=== PATIENT | male | born 1965 | race Caucasian/White ===

== ENCOUNTER 2024-09-16 22:19 | Emergency (ER) | payer OTHER, SELFPAY ==
[2024-09-16 22:21] VITALS: BP 126/85; PULSE 71; RESP 18; TEMP 36.2; O2SAT 98; BMI 26.5
--- NOTE | 2024-09-16 23:54 | EX.ED.DYSGE1 ---
HPI History of Present Illness Chief Complaint: Foreign Body Narrative Narrative: Patient is a 59-year-old male who presents to the emerged part with a chief complaint of piece of his hearing aid breaking off in his right ear and unable to get out on his own therefore he came here for the valuation management. Patient has no complaints at this point time. [facility] Allergy/AdvReac Type Severity Reaction Status Date / Time No Known Allergies Allergy Verified 09/16/24 22:21 Social History Smoking Status: Never smoker ROS ROS ED ROS Narrative Constitutional: Denies any headaches, lightness, dizziness Eyes, ears, nose, throat: Complains of retained foreign body in right ear as noted above Neurological: Denies numbness, weakness, tingling EXAM Physical Exam Narrative Exam Narrative: General: Patient lying in bed rest comfortably did not appear to be acute distress Head: Atraumatic, normocephalic Eyes, ears, nose, throat: PERRL bilateral, EOMI biotic no conjunctival injection noted, patient has evidence of piece of his hearing aid in his right ear canal Const Vital Signs: 09/16/24 22:21 09/16/24 22:31 Temperature 97.2 F L Temperature Source Temporal Pulse Rate 71 Respiratory Rate 18 Respiratory Effort Normal Respiratory Pattern Normal Blood Pressure 126/85 H Blood Pressure Mean 98 Pulse Ox 98 MDM MDM MDM Narrative Medical decision making narrative: Patient 59-year-old male who presented to the emerged part with a chief complaint of retained foreign body from his hearing aid in his right ear. On the differential diagnose includes but not limited to retained foreign body, otitis externa. Once workup is obtained reviewed he will be reevaluated. I was able to successfully remove the piece of the hearing aid that broke off. Repeat ENT exam showed no evidence of abrasion, TM visualized is normal in appearance no evidence of otitis media no evidence of perforated tympanic membrane. Patient advised to follow-up with his primary care physician and return with worsening symptoms or concerns. He is agreeable to plan all question concerns answered discharged home in stable condition. Discharge Plan Triage Chief Complaint: Foreign Body ED Provider: Kalia Manuel Dx/Rx/DC Orders Clinical Impression: Ear foreign body Primary Care Provider: Cedric Rao Referrals: Cedric Rao MD [Primary Care Provider] - Activity Restrictions/Additional Instructions: Follow-up with your primary care physician outpatient setting. I was able to remove the foreign body here in the emergency department. Print Language: Citizen Of [place] Disposition Disposition: Home, Self Care
[2024-09-16 23:59] VITALS: BP 126/85; PULSE 71; RESP 18; TEMP 36.2; O2SAT 98
== END 2024-09-17 00:05 | disposition home or self-care (01) ==
PROVIDERS: Emergency Provider Emergency Medicine; PCP Family Medicine; Referring Provider Emergency Medicine; Visit Provider Emergency Medicine
DX: T16.1XXA Foreign body in right ear, initial encounter (principal); W44.G1XA Audio device entering into or through a natural orifice, initial encounter

== ENCOUNTER 2025-08-25 11:45 | Emergency (ER) | payer OTHER, SELFPAY ==
[2025-08-25 11:46] VITALS: BP 153/90; PULSE 91; RESP 18; TEMP 36.6; O2SAT 98; BMI 24.6
--- NOTE | 2025-08-25 12:06 | EDS_ITS ---
HPI History of Present Illness Chief Complaint: Laceration Narrative Narrative: Patient is a 60-year-old male presenting to the emergency department for a hand laceration. Patient states that about an hour ago he was grinding cow feed when he injured his left hand. He is unsure when his last tetanus vaccine was. He denies any other injuries. He is right hand dominant. PFSH PFSH Allergy/AdvReac Type Severity Reaction Status Date / Time No Known Allergies Allergy Verified 08/25/25 11:48 Social History Smoking Status: Never smoker ROS ROS ED ROS Narrative see HPI EXAM Physical Exam Narrative Exam Narrative: Vital signs: Reviewed General: Alert and orientedx3. No acute distress. Well appearing, nontoxic. HEENT: Head is normocephalic and atraumatic, sinuses nontender, pupils equal round and reactive. Nares are patent. Oropharynx and throat exams normal. Neck: Supple without lymphadenopathy nontender Cardiovascular: Regular rate and rhythm, no murmurs. No rubs or gallops. Normal S1 and S2 Respiratory: Clear to auscultation bilaterally. No wheezes, rales, rhonchi Abdominal: Soft and nontender. Normal bowel sounds. No guarding or rebound. Nonsurgical abdomen Extremities: Left radial pulse intact. Sensation and motor intact in radial median and ulnar distributions. There is a 3 cm laceration to the left volar ulnar side of the palm proximally. There is active oozing, no arterial bleeding. No obvious foreign body seen. There is a skin abrasion to the dorsal proximal aspect of the left ulnar side of the hand. No active bleeding. The rest of the physical exam is unremarkable Const Vital Signs: 08/25/25 11:46 08/25/25 13:35 Temperature 98 F 98.1 F Temperature Source Oral Pulse Rate 91 73 Respiratory Rate 18 18 Blood Pressure 153/90 H 132/82 H Blood Pressure Mean 111 98 Pulse Ox 98 98 Oxygen Delivery Method Room Air MDM MDM MDM Narrative Medical decision making narrative: Patient is a 60-year-old male presenting to the emergency department for a left hand laceration. Patient was seen and examined. Vitals are stable. Patient resting in bed comfortably no acute distress. Tetanus vaccine was updated. Wound was copiously irrigated under 10 minutes of running faucet water. X-ray imaging ordered to evaluate for any radiopaque foreign body or fracture. X-ray reviewed by myself and there is no fractures or radiopaque foreign body noted. Radiology read in agreement. Patient was anesthetized using 2% lidocaine with epi. Five 4.0 Ethilon simple interrupted sutures were placed. Patient tolerated well. Patient and are given wound care instructions. Instructed to have the sutures removed in about 7 days. Patient discharged from the Emergency Department. I do not feel that the patient's evaluation reveals any acute reason for admission at this time. I ins tructed them to either follow-up with their primary care physician or promptly return to the Emergency Department for reevaluation should symptoms worsen or new symptoms develop. I explained what symptoms would indicate the need to return to the emergency department. Shared decision making was used. The patient voiced understanding of the treatment plan and is agreeable with it. Clinical impression Hand laceration History & Record Review Discussion w/independent historian: Patient and Significant other Radiography X-Ray: Read by ED Physician and No Fracture Diagnostic Testing: Clinical Impression(s) from Imaging Studies Hand X-Ray 08/25/25 12:20 IMPRESSION: NO ACUTE FRACTURE OR DISLOCATION. If acute hand or wrist trauma is suspected and initial radiographs are negative or equivocal repeat radiographs in 10-14 days MRI without IV contrast or CT without IV contrast is usually appropriate as the next imaging study. (ACR Appropriateness Criteria: Acute Hand and Wrist Trauma 2018) No retained radiopaque foreign body. Reading Location: [facility] Discharge Plan Triage Chief Complaint: Laceration ED Provider: Tatianna Hartmann Dx/Rx/DC Orders Clinical Impression: Hand laceration Instructions: ED Laceration, All Closures Primary Care Provider: Cedric Rao Referrals: Cedric Rao MD [Primary Care Provider, Family Practice] - 5-7 Days Activity Restrictions/Additional Instructions: Continue to have the sutures removed in about 7 days. Watch for signs of infection are discussed including drainage, warmth, redness or swelling. Try to keep the wound is clean and dry as you can. Keep it covered with gauze or any other Band-Aid/dressing. Your evaluation in the Emergency Department did not reveal any acute reason for admission. However, I want to emphasize that you may be early in the course of a disease process or illness even if it is not present. For this reason you should follow-up within 24 hours for reevaluation with either your primary care physician or if necessary back here in the Emergency Department. You should return to the Emergency Department immediately if your symptoms worsen or new symptoms develop. Print Language: [place]ese Disposition Disposition: Home, Self Care Discharge Date/Time: 08/25/25 13:47
--- NOTE | 2025-08-25 12:20 | RAD_ITS ---
PROCEDURE: HAND MIN 3 VIEWS 08/25/2025 REASON FOR EXAM: LAC TO HAND TECHNIQUE: Procedure Code: [id number] Modality: DX Procedure: HAND MIN 3 VIEWS Laterality: Left COMPARISON: None FINDINGS: Bones: No acute fracture. Joints: No dislocation. Soft tissues: No retained radiopaque foreign body. Other: RAD/Hand Min 3 Views IMPRESSION: NO ACUTE FRACTURE OR DISLOCATION. If acute hand or wrist trauma is suspected an d initial radiographs are negative or equivocal repeat radiographs in 10-14 days MRI without IV contrast or CT without IV contr ast is usually appropriate as the next imaging study. (ACR Appropriateness Criteria: Acute Hand and Wrist Trauma 2018) No retained radiopaque foreign body. Reading Location: [facility]
--- OUTSIDE RECORDS SUMMARY | 2025-08-25 12:54 | XMS RPT_ITS | CCD ---
Author Organization [facility] Informat ion Partnership [facility] Care Team Providers Care Device Repair Technician Name Role Phone Lori Sheppard MD Primary Care Provider LORI SHEPPARD Attending Unavailable LORI SHEPPARD Primary Care Unavailable LORI SHEPPARD Attending Unavailable LORI SHEPPARD Primary Care Unavailable LORI SHEPPARD Primary Care Unavailable Cedric Rao Primary Care Unavailable Kalia Manuel Referring Unavailable Kalia Manuel Attending Unavailable Problems Active Problems Problem Classification Problem Date Documented Da te Episodic/Chronic Other ear and sense organ disorders (1 source) Hearing loss; Translations: [Unspecified hearing loss, unspecified ear] 07-26-2023 Chronic Other ear and sense organ disorders (2 sources) Unspecified hearing loss, unspecified ear; Translations: [Unspecified hearing loss, unspecified ear] Onset: 07-26-2023 Chronic Other injuries and conditions due to external causes (1 source) Foreign body in right ear, initial encounter; Translations: [Foreign body in right ear, initial encounter] Onset: 11-27-2024 Episodic Other screening for suspected conditions (not mental disorders or infectious disease) (5 sources) Patient encounter status; Translations: [Encounter for screening for diabetes mellitus] Onset: 11-24-2023 11-24-2023 Episodic Past or Other Problems Problem Classification Problem Date Documented Date Episodic/Chronic Immunizations and screening for infectious disease (3 sources) Requires tetanus and diphtheria vaccination; Translations: [Encounter for immunization] Onset: 07-26-2023 07-26-2023 Episodic Otitis media and related conditions (3 sources) Finding of fluid behind tympanic membrane; Translations: [Unspecified nonsuppurative otitis media, unspecified ear] Onset: 07-26-2023 07-26-2023 Episodic Unclassified (1 source) Onset: 11-24-2023 11-24-2023 Results Test Name Value Interpretation Reference Range Facil ity Emergency Department Summary on 09-16-2024 Emergency Department Summary [facility] Medical Records Department [address] [place] [address] Emergency Department Summary 09/16/24 MR#: [id number] Acct: [id number] Name: LAURI DU Rep #: [id number] : 1965 59 From: Kalia Manuel DO PCP: Dr. Cedric Rao MD Status:REG ER Location: ED HPI History of Present Illness Chief Complaint: Foreign Body Narrative Narrative: Patient is a 59-year-old male who presents to the emerged part with a chief complaint of piece of his hearing aid breaking off in his right ear and unable to get out on his own therefore he came here for the valuation management. Patient has no complaints at this point time. PFSH PFSH Allergy/AdvReac Type Severity Reaction Status Date / Time No Known Allergies Allergy Verified 09/16/24 22:21 Social History Smoking Status: Never smoker ROS ROS ED ROS Narrative Constitutional: Denies any headaches, lightness, dizziness Eyes, ears, nose, throat: Complains of retained foreign body in right ear as noted above Neurological: Denies numbness, weakness, tingling EXAM Physical Exam Narrative Exam Narrative: General: Patient lying in bed rest comfortably did not appear to be acute distress Head: Atraumatic, normocephalic Eyes, ears, nose, throat: PERRL bilateral, EOMI biotic no conjunctival injection noted, patient has evidence of piece of his hearing aid in his right ear canal Const Vital Signs: 09/16/24 22:21 09/16/24 22:31 Temperature 97.2 F L Temperature Source Temporal Pulse Rate 71 Respiratory Rate 18 Respiratory Effort Normal Respiratory Pattern Normal Blood Pressure 126/85 H Blood Pressure Mean 98 Pulse Ox 98 MDM MDM MDM Narrative Medical decision making narrative: Patient 59-year-old male who presented to the emerged part with a chief complaint of retained foreign body from his hearing aid in his right ear. On the differential diagnose includes but not limited to retained foreign body, otitis externa. Once workup is obtained reviewed he will be reevaluated. I was able to successfully remove the piece of the hearing aid that broke off. Repeat ENT exam showed no evidence of abrasion, TM visualized is normal in appearance no evidence of otitis media no evidence of perforated tympanic membrane. Patient advised to follow-up with his primary care physician and return with worsening symptoms or concerns. He is agreeable to plan all question concerns answered discharged home in stable condition. Discharge Plan Triage Chief Complaint: Foreign Body ED Provider: Kalia Manuel Dx/Rx/DC Orders Clinical Impression: Ear foreign body Primary Care Provider: Cedric Rao Referrals: Cedric Rao MD [Primary Care Provider] - Activity Restrictions/Addition al Instructions: Follow-up with your primary care physician outpatient setting. I was able to remove the foreign body here in the emergency department. Print Language: Malagasy Disposition Disposition: Home, Self Care What to do if you have Problems For any increased pain, shortness of breath, bleeding, nausea or vomiting, chest pain, or any unexpected problems, contact your Primary Care Provider. Call [facility] ([phone]) or report to the closest Emergency Room. Call 911 if necessary. 09/16/24 5692 Cosigner Signature (if applicable): CC: Dr. Cedric Rao MD Signed Normal [facility] Basic metabolic 2000 panelon 11-24-2023 Anion gap [Moles/Vol] 9 mmol/L Low 10-20 [facility] Comment on above: Performed By: #### 2 4321-2 #### CINDY HOOPER ([id number]) [facility] ([facility]) [facility] [place] [address] Calcium [Mass/Vol] 9.4 mg/dL Normal 8.6-10.3 [facility] Comment on above: Performed By: #### 2 4321-2 #### CINDY HOOPER ([id number]) [facility] ([facility]) [facility] [place] [address] Chloride [Moles/Vol] 102 mmol/L Normal 98-107 [facility] Comment on above: Performed By: #### 2 4321-2 #### CINDY HOOPER ([id number]) [facility] ([facility]) [facility] [place] [address] CO2 [Moles/Vol] 32 mmol/L Normal 21-32 [facility] Comment on above: Performed By: #### 2 4321-2 #### CINDY HOOPER ([id number]) [facility] ([facility]) [address] [place] [address] Creatinine [Mass/Vol] 1.04 mg/dL Normal 0.50-1.30 [facility] Comment on above: Performed By: #### 2 4321-2 #### CINDY HOOPER ([id number]) [facility] ([facility]) [address] [place] [address] Glomerular filtration rate/1.73 sq M.predicted 83 mL/min/1.73m*2 Normal >60 [facility] Comment on above: Result Comment: Calc ulations of estimated GFR are performed using the 2020 CKD-EPI Study Refit equation without the race variable for the IDMS-Traceable creatinine methods. https://jasn.asnjournals.org/content//ASN.925768095 8 Performed By: #### 2 4321-2 #### CINDY HOOPER ([id number]) [facility] ([facility]) [address] [place] [address] Glucose [Mass/Vol] 87 mg/dL Normal 74-99 [facility] Comment on above: Performed By: #### 2 4321-2 #### CINDY HOOPER ([id number]) [facility] ([facility]) [address] [place] [address] Potassium [Moles/Vol] 4.7 mmol/L Normal 3.5-5.3 [facility] Comment on above: Performed By: #### 2 4321-2 #### CINDY HOOPER ([id number]) [facility] ([facility]) [address] [place] [address] Sodium [Moles/Vol] 138 mmol/L Normal 136-145 [facility] Comment on above: Performed By: #### 2 4321-2 #### CINDY HOOPER ([id number]) [facility] ([facility]) [address] [place] [address] Urea nitrogen [Mass/Vol] 15 mg/dL Normal 6-23 [facility] Comment on above: Performed By: #### 2 4321-2 #### CINDY HOOPER ([id number]) [facility] ([facility]) [address] [place] [address] HbA1c (Bld) [Mass fraction]o n 11-24-2023 Average glucose Estimated from glycated hemoglobin (Bld) [Mass/Vol] 114 mg/dL Normal Not Established [facility] Comment on above: Order Comment: Diagn osis of Diabetes-Adults Non-Diabetic: < or = 5.6% Increased risk for developing diabetes: 5.7-6.4% Diagnostic of diabetes: > or = 6.5% Monitoring of Diabetes Age (y)....................... Therapeutic Goal (%) Adults: >18.........................<7.0 Pediatrics: 13-18...................<7.5 Pediatrics: 7-12....................<8.0 Pediatrics: 0-6..................... 7.5-8.5 [place] [employer]. Diabetes Care 33(S1), Sep 2009 Performed By: #### 4 548-4 #### CINDY HOOPER ([id number]) [facility] ([facility]) [address] [place] [address] Hemoglobin A1c/Hemoglobin.to jung 11-24-2023 HbA1c (Bld) [Mass fraction] 5.6 % Normal see below [facility] Comment on above: Order Comment: Diagn osis of Diabetes-Adults Non-Diabetic: < or = 5.6% Increased risk for developing diabetes: 5.7-6.4% Diagnostic of diabetes: > or = 6.5% Monitoring of Diabetes Age (y)....................... Therapeutic Goal (%) Adults: >18.........................<7.0 Pediatrics: 13-18...................<7.5 Pediatrics: 7-12....................<8.0 Pediatrics: 0-6..................... 7.5-8.5 [place] [employer]. Diabetes Care 33(S1), Sep 2009 Performed By: #### 4 548-4 #### WHITE SANDIE ([id number]) [facility] ([facility]) [facility] [place] [address] CT Coronary Artery Calcium S core - SHILPAon 06-07-2019 Calcium [Mass/Vol] Exam Date/Time: 06/07/2019 08:40 EDT Reason for Exam: SCREENING ISCHEMIC HEART DISEASE FM HX CAD FATIGUE HYPERSOMNOLENCE;Scree claudia Report STUDY: CT Coronary Artery Calcium Score - SHILPA; 06/07/2019 8:40 am INDICATION: Screening. COMPARISON: None. ACCESSION NUMBER(S): [id number] ORDERING CLINICIAN: Kirk Brian TECHNIQUE: Using prospective ECG gating, CT scan of the coronary arteries was performed without intravenous contrast. Coronary calcium scoring was performed according to the method of Agatston. FINDINGS: The score and distribution of calcium in the coronary arteries is as follows: LM 0, LAD 0, LCx 43,19 mm2 RCA 0, Total 43 The visualized mid/lower ascending thoracic aorta measures 3.4 cm in diameter. The visualized descending thoracic aorta is within normal limits for course and caliber. The heart is within normal limits for size. No pericardial effusion is present. No gross mediastinal lymphadenopathy is identified. There is no focal infiltrate, pleural effusion or pneumothorax identified. No discrete pulmonary nodules or masses are seen within the visualized lungs. IMPRESSION: 1. Coronary artery calcium score of 43, which places the patient in the low risk category, as below. Coronary artery calcium scoring may be helpful in predicting the risk for future coronary heart disease events. According to the [place] [employer] Clinical Expert Consensus Task Force, such testing provides important prognostic information in patients with more than one coronary heart disease risk factor. The coronary artery calcium score correlates with the annual risk of a non-fatal myocardial infarction or coronary heart disease . Exam Date/Time: 06/07/2019 08:40 EDT Report Coronary artery score Annual Risk 0-99 0.4% 100-399 1.3% >400 2.4% These three breakpoints correspond to lower, intermediate and high risk states for future coronary events. Such information should be used, along with appropriate clinical judgment, to make decisions regarding the intensity of risk factor management strategies to treat blood lipids and to modify other non-lipid coronary risk factors. Reference: Jaime P et al. Circulation. 2007; 115:402-426 FINAL REPORT Dictated: 06/07/2019 11:44 am Paul Arauz MD Signed (Electronic Signature): 06/07/2019 11:44 am Signed by: Paul Arauz MD Technologist: MLL Normal [facility] Testost Totalon 05-30-2019 Testoster Tot 599 ng/dL Normal 264-916 [facility] Comment on above: Result Comment: Adul t male reference interval is based on a population of healthy nonobese males (BMI <30) between 19 and 39 years old. Denise, et.al. JCEM 2017,102;6986-2841. PMID: 98597098. Performed At: [facility] [address] [id number] Atilio Flores PhD Ph:[phone] Performed By: #### 2 [id number] #### FREEDOM Send Outs Subsection [facility] [place] [address] Auto Diffon 02-22-2019 Basophils (Bld) [#/Vol] 0.0 E3/mcL Normal 0.0-0.2 [facility] Comment on above: Order Comment: Order Added by Discern Expert. Performed By: #### 2 061542 #### FREEDOM [employer] [address] [place] [address] Basophils/100 WBC (Bld) 0.6 % Normal 0.0-2.0 [facility] Comment on above: Order Comment: Order Added by Discern Expert. Performed By: #### 2 340599 #### FREEDOM [employer] [address] [place] [address] Eos Absolute 0.3 E3/mcL Normal 0.0-0.7 [facility] Comment on above: Order Comment: Order Added by Discern Expert. Performed By: #### 2 742458 #### FREEDOM [employer] [address] [place] [address] Eosinophils/100 WBC (Bld) 4.0 % Normal 0.0-11.0 [facility] Comment on above: Order Comment: Order Added by Discern Expert. Performed By: #### 2 694509 #### FRE[facility]OM [employer] [address] [place] [address] Lymphocytes (Bld) [#/Vol] 1.5 E3/mcL Normal 1.2-3.4 [facility] Comment on above: Order Comment: Order Added by Discern Expert. Performed By: #### 2 415313 #### FREEDOM [employer] [address] [place] [address] Lymphocytes/100 WBC (Bld) 23.2 % Normal 20.0-55.0 [facility] Comment on above: Order Comment: Order Added by Discern Expert. Performed By: #### 2 449036 #### FREEDOM [employer] [address] [place] [address] [place] Absolute 0.7 E3/mcL Normal 0.0-0.7 [facility] Comment on above: Order Comment: Order Added by Discern Expert. Performed By: #### 2 915066 #### FREEDOM [employer] [address] [place] [address] Monocytes/100 WBC (Bld) 10.9 % High 0.0-10.0 [facility] Comment on above: Order Comment: Order Added by Discern Expert. Performed By: #### 2 390572 #### FRE[facility]OM [employer] [address] [place] [address] Neutro Absolute 3.9 E3/mcL Normal 1.4-6.5 [facility] Comment on above: Order Comment: Order Added by Discern Expert. Performed By: #### 2 956411 #### [facility] [employer] [address] [place] [address] Neutro Auto 61.3 % Normal 37.0-75.0 [facility] Comment on above: Order Comment: Order Added by Discern Expert. Performed By: #### 2 625533 #### FREEDOM [employer] [address] [place] [address] CBC w/ Auto Diffon 9 Erythrocyte distribution width (RBC) [Ratio] 13.7 % Normal 11.5-14.5 [facility] Comment on above: Performed By: #### 2 334489 #### FEREDOM [employer] [address] [place], [place] [address] Hematocrit (Bld) [Volume fraction] 48.3 % Normal 42.0-52.0 [facility] Comment on above: Performed By: #### 2 092133 #### FREEDOM [employer] [address] [place], [place] [address] Hemoglobin (Bld) [Mass/Vol] 16.0 g/dL Normal 13.5-18.0 [facility] Comment on above: Performed By: #### 2 928900 #### FREEDOM [employer] [address] [place], [place] [address] MCH (RBC) [Entitic mass] 30.6 pg Normal 27.0-31.0 [facility] Comment on above: Performed By: #### 2 728909 #### FREEDOM [employer] [address] [place], [place] [address] MCHC (RBC) [Mass/Vol] 33.1 g/dL Normal 33.0-37.0 [facility] Comment on above: Performed By: #### 2 394700 #### FREEDOM [employer] [address] [place] [address] MCV (RBC) [Entitic vol] 92.2 fL Normal 78.0-100.0 [facility] Comment on above: Performed By: #### 2 031458 #### FREEDOM [employer] [address] [place] [address] Platelet mean volume (Bld) [Entitic vol] 9.5 fL Normal 7.4-11.0 [facility] Comment on above: Performed By: #### 2 879379 #### FREEDOM [employer] [address] [place] [id number] Platelets (Bld) [#/Vol] 200 E3/mcL Normal 130-400 [facility] Comment on above: Performed By: #### 2 356931 #### FREEDOM [employer] [address] [place], [place] [address] RBC (Bld) [#/Vol] 5.24 E6/mcL Normal 3.90-6.10 [facility] Comment on above: Performed By: #### 2 682583 #### FREEDOM [employer] [address] [place], [place] [address] WBC (Bld) [#/Vol] 6.4 E3/mcL Normal 3.6-11.0 [facility] Comment on above: Performed By: #### 2 387171 #### [facility] [address] [place], [place] [address] CMPon 02-22-2019 Albumin [Mass/Vol] 3.8 g/dL Normal 3.4-5.0 [facility] Comment on above: Performed By: #### 2 130863 #### FREEDOM [employer] [address] [place], [place] [address] Albumin/Globulin [Mass ratio] 1.4 {ratio} Normal 1.1-1.9 [facility] Comment on above: Performed By: #### 2 913435 #### FREEDOM [employer] [address] [place], [place] [address] Alk Phos 45 Int._Unit/L Normal 33-120 [facility] Comment on above: Performed By: #### 2 962746 #### FREEDOM [employer] [address] [place], [place] [address] ALT [Catalytic activity/Vol] 26 Int._Unit/L Normal 10-52 [facility] Comment on above: Performed By: #### 2 522715 #### [facility] [employer] [address] [place], [place] [address] Anion gap [Moles/Vol] 9 mmol/L Low 10-20 [facility] Comment on above: Performed By: #### 2 713500 #### [facility] [employer] [address] [place], [place] [address] AST [Catalytic activity/Vol] 21 Int._Unit/L Normal 9-39 [facility] Comment on above: Performed By: #### 2 970098 #### FRE[employer]OM [employer] [address] [place] [address] Bili Total 0.68 mg/dL Normal 0.00-1.20 [facility] Comment on above: Performed By: #### 2 407016 #### FREEDOM [employer] [address] [place] [address] Calcium [Mass/Vol] 8.8 mg/dL Normal 8.6-10.3 [facility] Comment on above: Performed By: #### 2 890977 #### F[employer]OM [employer] [address] [place] [address] Chloride [Moles/Vol] 104 mmol/L Normal 98-107 [facility] Comment on above: Performed By: #### 2 220705 #### FREEDOM [employer] [address] [place] [address] CO2 [Moles/Vol] 30.0 mmol/L Normal 21.0-32.0 [facility] Comment on above: Performed By: #### 2 305756 #### FREEDOM [employer] [address] [place] [address] Creatinine [Mass/Vol] 1.1 mg/dL Normal 0.5-1.3 [facility] Comment on above: Performed By: #### 2 733243 #### F[employer]OM [employer] [address] [place] [address] Globulin (S) [Mass/Vol] 3.0 g/dL Normal 2.0-4.0 [facility] Comment on above: Performed By: #### 2 880266 #### [employer] [address] [place] [address] Glucose [Mass/Vol] 96 mg/dL Normal 70-99 [facility] Comment on above: Performed By: #### 2 839811 #### [employer] [address] [place] [address] Potassium [Moles/Vol] 3.9 mmol/L Normal 3.5-5.3 [facility] Comment on above: Performed By: #### 2 377342 #### [employer] [address] [place] [address] Protein [Mass/Vol] 6.5 g/dL Normal 6.4-8.2 [facility] Comment on above: Performed By: #### 2 064533 #### [employer] [address] [place] [address] Sodium [Moles/Vol] 139 mmol/L Normal 136-145 [facility] Comment on above: Performed By: #### 2 598267 #### [employer] [address] [place] [address] Urea nitrogen [Mass/Vol] 18 mg/dL Normal 6-23 [facility] Comment on above: Performed By: #### 2 168822 #### F[employer]OM [employer] [address] [place] [address] Urea nitrogen/Creatinin e [Mass ratio] 16.4 ratio Normal 5.4-30.0 [facility] Comment on above: Performed By: #### 2 399096 #### [facility] [address] [place] [address] Lipid Profileon 02-22-2019 Cholesterol [Mass/Vol] 216 mg/dL High 0-199 [facility] Comment on above: Result Comment: TOTA L CHOLEESTEROL: <200 NORMAL 200 - 239 BORDERLINE HIGH >240 HIGH Performed By: #### 3 [id number] #### [facility] [address] [place] [address] Cholesterol in HDL [Mass/Vol] 52 mg/dL Normal 40-60 [facility] Comment on above: Performed By: #### 3 3775212 #### [employer] [address] [place] [address] Cholesterol in LDL [Mass/Vol] 145 mg/dL High 0-130 [facility] Comment on above: Result Comment: <100 OPTIMAL 100-129 NEAR / ABOVE OPTIMAL 130-159 BORDERLINE HIGH 160-189 HIGH >190 VERY HIGH CALC LDL NOT VALID WHEN TRIGLYCERIDE IS >400 MG/DL Performed By: #### 3 [id number] #### [facility] [address] [place] [address] Cholesterol in VLDL [Mass/Vol] 19 mg/dL Normal 0-40 [facility] Comment on above: Performed By: #### 3 5048852 #### [facility] [address] [place], [place] [address] Triglyceride [Mass/Vol] 96 mg/dL Normal 0-149 [facility] Comment on above: Result Comment: AGE DESIRABLE BORDERLINE HIGH 91 D - 9 Y 0 - 74 75 - 99 > 100 10 - 19 Y 0 - 89 90 - 129 > 130 20 -24 Y 0 - 114 115 - 149 > 150 > 25 0 - 149 150 - 199 200 - 499 Performed By: #### 3 [id number] #### [facility] [employer] [address] [place], [place] [address] Sed Rate Automatedon 019 Sed Rate Automated 10 mm/hr Normal [facility] Comment on above: Result Comment: AGE- SPECIFIC REFERENCE RANGES FOR SEDIMENTATION RATE AUTOMATED REFERENCE RANGE - MM/HR AGE MEN WOMEN 0-2 0-2 - PUBERTY 3-13 3-13 PUBERTY - 50 YRS 0-15 0-20 > 50 YRS 0-20 0-30 Performed By: #### 1 [id number] #### FREEDOM Hematology Manual Subsection [address] [place] [address] TSHon 02-22-2019 TSH Qn 1.38 mcIU/mL Normal 0.30-5.60 [facility] Comment on above: Performed By: #### 2 032157 #### FREEDOM [employer] [address] [place] [address] Vit B12on 02-22-2019 Cobalamin (Vitamin B12) [Mass/Vol] 397 pg/mL Normal 180-914 [facility] Comment on above: Performed By: #### 2 698334 #### FREEDOM [employer] [address] [place], [place] [address] eGFRon 02-22-2019 GFR/1.73 sq M predicted among non-blacks MDRD (S/P/Bld) [Vol rate/Area] mL/min/{1.73_m2} Normal [facility] Comment on above: Order Comment: Order added by Discern Expert. Performed By: #### 1 [id number] #### FRE[facility] [employer] [address] [place] [address] Vital Signs Date Time Vital Sign Value Performing Clinician Abigail more 11-24-2023 07:52-0400 Body height 171.5 cm Lori Sheppard MD Work Phone: [facility] 11-24-2023 07:52-0400 Body mass index (BMI) [Ratio] 25.58 kg/m2 Lori Sheppard MD Work Phone: [facility] 11-24-2023 07:52-0400 Body weight 75.21 kg Lori Sheppard MD Work Phone: [phone] [place] [address] 11-24-2023 07:52-0400 Diastolic blood pressure 80 mm[Hg] Lori Sheppard MD Work Phone: [phone] [place] [address] 11-24-2023 07:52-0400 Heart rate 84 /min Lori Sheppard MD Work Phone: [phone] [place] [address] 11-24-2023 07:52-0400 SaO2% (BldA) [Mass fraction] 96 % Lori Sheppard MD Work Phone: [phone] [place] [address] 11-24-2023 07:52-0400 Systolic blood pressure 110 mm[Hg] Lori Sheppard MD Work Phone: [phone] [address] 07-26-2023 07:50-0500 Body height 171.5 cm Lori Sheppard MD Work Phone: [phone] [place] [address] 07-26-2023 07:50-0500 Body mass index (BMI) [Ratio] 25.21 kg/m2 Lori Sheppard MD Work Phone: [phone] [place] [address] 07-26-2023 07:50-0500 Body weight 74.12 kg Lori Sheppard MD Work Phone: [phone] [place] [address] 07-26-2023 07:50-0500 Diastolic blood pressure 76 mm[Hg] Lori Sheppard MD Work Phone: [phone] [place] [address] 07-26-2023 07:50-0500 Heart rate 82 /min Lori Sheppard MD Work Phone: [phone] [place] [address] 07-26-2023 07:50-0500 SaO2% (BldA) [Mass fraction] 96 % Lori Sheppard MD Work Phone: [facility] 07-26-2023 07:50-0500 Systolic blood pressure 126 mm[Hg] Lori Sheppard MD Work Phone: [facility] Encounters Encounter Date Encounter Type Care Provider Facility Start: 09-16-2024 End: 09-17-2024 Emergency department patient visit Cedric Rao Facility:[facility] Start: 11-24-2023 End: 11-25-2023 ambulatory [facility] Start: 11-24-2023 End: 11-24-2023 Encounter for general adult medical examination without abnormal findings [facility] Start: 11-24-2023 End: 11-24-2023 Patient encounter procedure Lori Sheppard MD Work Phone: [facility] Work Phone: Start: 11-24-2023 End: 11-24-2023 Periodic preventive med est patient 40-64yrs Lori Sheppard MD Work Phone: [facility] Comment on above: Annual physical exam (Primary Dx); Screening for diabetes mellitus Start: 07-26-2023 End: 07-26-2023 ambulatory [facility] Start: 07-26-2023 End: 07-26-2023 Office outpatient new 30 minutes Lori Sheppard MD Work Phone: [facility] Comment on above: Fluid collection of middle ear (Primary Dx); Hearing loss, unspecified hearing loss type, unspecified laterality; Need for vaccine for Td (tetanus-diphtheria) Procedures Date Procedure Procedure Detail Performing Clinician Start: 11-24-2023 Basic metabolic 2000 panel - Serum or Plasma LORI SHEPPARD Start: 11-24-2023 Hemoglobin A1c/Hemoglobin.total in Blood LORI SHEPPARD Start: 07-26-2023 TDAP VACCINE GREATER THAN OR EQUAL TO 7YO IM LORI SHEPPARD Start: 02-22-2021 Lipid 1996 panel - S praveena or Plasma Lori Sheppard MD Work Phone: Start: 09-09-2019 Colonoscopy Lori salguero MD Work Phone: Start: 02-22-2019 [object Object] Comment on above: Result Comment: AGE- SPECIFIC REFERENCE RANGES FOR SERUM PSA REFERENCE RANGE NG/ML AGE ASIANS BLACKS WHITE 40-49 0-2 0-2 0-2.5 50-59 0-3 0-4 0-3.5 60-69 0-4 0-4.5 0-4.5 70-79 0-5 0-5.5 0-6.5 PSA INCREASES WITH AGE, RACE, AND EJACULATION WITHIN 48 HRS. [facility] VOL24,NO.2, , PG.339 Performed By: #### 1 [id number] #### [facility] [place] [address] Plan of Treatment Date Care Activity Detail Author Start: 07-26-2033 DTaP/Tdap/Td Vaccine s (2 - Td or Tdap) DTaP/Tdap/Td Vaccines (2 - Td or Tdap) [facility] Start: 05-15-2029 Screening for malign ant neoplasm of colon [facility] Start: 02-22-2026 Lipid panel Lipid Panel [facility] Start: 11-27-2024 End: 11-27-2024 Patient encounter procedure 11/27/2024 8:00 AM EDT Office Visit [facility] [address] [place] [phone] Lori Sheppard MD [address] [place] [address] [facility] Start: 11-24-2023 End: 11-23-2024 Basic metabolic 2000 panel - Serum or Plasma Basic metabolic panel Lab Routine Screening for diabetes mellitus Expected: 11/24/2023 (Approximate), Expires: 11/23/2024 [facility] Work Phone: Comment on above: Expected: 11/24/2023 (Approximate), Expires: 11/23/2024 Start: 11-24-2023 End: 11-23-2024 Hemoglobin A1c/Hemoglobin.total in Blood Hemoglobin A1c Lab Routine Screening for diabetes mellitus Expected: 11/24/2023 (Approximate), Expires: 11/23/2024 [facility] Service [facility] Work Phone: Comment on above: Expected: 11/24/2023 (Approximate), Expires: 11/23/2024 Start: 11-24-2023 End: 11-24-2023 Patient encounter procedure 11/24/2023 8:00 AM EDT Office Visit [facility] [address] [place] [phone] Lori Sheppard MD [address] [place] [address] [facility] Start: 05-07-2023 Influenza vaccination Influenza Vacc ine (#1) [facility] Start: 2014 Zoster Vaccines (1 o f 2) Zoster Vaccines (1 of 2) [facility] Start: 1982 Diabetes mellitus screening Diabetes Screening [facility] Start: 1982 [facility] COVID-19 Vaccine (#1) COVID-19 Vacci ne (#1) [facility] Start: 1964 Hepatitis B Vaccines (1 of 3 - 3-dose series) Hepatitis B Vaccines (1 of 3 - 3-dose series) [facility] Start: 1964 HIV screening HIV Screening [facility] Start: 1964 Lipid panel Lipid Panel [facility] Start: 1964 Screening for malign ant neoplasm of colon [facility] Start: 1964 Yearly Adult Physical Yearly Adult P hysical [facility] Immunizations Immunization Date Immunization Notes Care Provider Fa cility 07-26-2023 tetanus toxoid, redu ron diphtheria toxoid, and acellular pertussis vaccine, adsorbed Lori Sheppard MD Work Phone: [facility] Work Phone: 12-02-2014 tetanus and diphther ia toxoids, adsorbed, preservative free, for adult use (2 Lf of tetanus toxoid and 2 Lf of diphtheria toxoid) Lori Sheppard MD Work Phone: [facility] Work Phone: 02-22-2014 measles, mumps and rubella virus vaccine Lori Sheppard MD Work Phone: [facility] Payers Date Payer Category Payer Self-pay 2022 Unknown [id number] 2022 Unknown [id number] 2022 Unknown [id number] 1964 Unknown [id number] 1964 Unknown [id number] 1964 Unknown [id number] Unknown [id number] Social History Date Type Detail Facility Start: 07-26-2023 Tobacco smoking status NHIS Never smoked tobacco [facility] Work Phone: Start: 07-26-2023 Tobacco use and exposure Former smokeless tobacco user [facility] Work Phone: End: 09-06-2014 History of tobacco use User of smokeless tobacco [facility] Work Phone: Start: 07-26-2023 End: 11-24-2023 Alcohol intake Ex-drinker (finding) [facility] Work Phone: Start: 1965 Sex Assigned At Not on file [facility] Work Phone: Start: 11-24-2023 Gender identity Not on file [facility] Work Phone: Start: 07-16-2023 End: 11-24-2023 Exposure to SARS-CoV-2 (event) Not sure [facility] Start: 11-24-2023 History of Social function [facility] Work Phone: NEGATED: Highlighted rowStart: GEO History of tobacco use Passive smoker [facility] Work Phone: History of Present illness Narrative 11-24-2023 Lori Sheppard MD - 11/24/2023 8:00 AM EDT Note Date & Type Note Facility 11-24-2023 History of Present illness Narrative Subjective: Lauri Du is a 58 y.o. 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 Going well Social History: - Who lives with you at home? - Have you received a COVID vaccine?: no PHQ2 - 0 (Provider to ask): Pillars of health: - Any issues with sleep? Not more than normal - How do you feel about your eating habits? 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 Most days - Do you have any goals related to exercise or nutrition? no - How is your stress level? good Manageable or is it a problem? manageable - Any guns in the home? yes If yes, are they locked in a safe? yes Cancer screening: - Have you ever had a colonoscopy? Yes, 2019, normal, repeat 10 years Sexual history (provider to ask): - Have you been sexually active within the past year? no - Do you have a personal history of sexually transmitted infections (STI)?: no - Do you want comprehensive STI testing today? no Domestic Violence Screening (Provider to ask): Because violence is so common in many people's lives and because there is help available for those being abused, I now ask every patient about domestic violence: - Within the past year have you been hit, slapped, kicked or otherwise physically hurt by someone? no - Are you in a relationship with a person who threatens or physically hurts you? no - Has anyone forced you to have sexual activities that made you feel uncomfortable? no Review of Systems Assessment/Plan: Lauri Du is a 58 y.o. male with a history of hearing loss who presents to clinic today to address the following issues: 1. Annual physical exam 2. Screening for diabetes mellitus Hemoglobin A1c Basic metabolic panel Annual physical examination without abnormalities. Discussed with Lauri importance of regular exercise and healthy diet. Recommended shingles vaccine which he is considering. Screening blood work as above. He notes he had a lipid panel 6mo ago through life insurance which was relatively normal so will hold off until next year for this. Patient Instructions I would recommend getting your shingles vaccine at the pharmacy. You get one now and one in 2-6 months. About 30% of people will feel unwell after the shot so I recommend getting it done on a day that you do not have important plans the next day. Routine adult health maintenance It sounds as if things are going well. Keep up the good work! Exercise: - Try for at least 150 minutes of cardiovascular (strenuous) exercise per week. Safety: - Wear your seat belt at all times when in a car and NO TEXTING/CELL PHONES while driving. - Wear a helmet while biking, using a motorcycle, skiing/snow boarding, skate/long boarding, or any activities faster than running. - Avoid smoking. - If you have a gun it needs to be locked up and stored unloaded away from children. Nutrition: - Drink plenty of water each day - No more than 2 alcoholic drinks per day for men. No more than 1 alcoholic drink per day for woman. - Read labels for calories - Use website My Fitness Pal for free calorie counting tool when possible. Stress: - Make time for activities that allow you to decrease stress and recognize any red flags of stress for you to know when to activate your stress release mechanisms. Sleep: - Try to get 7-9 hours of sleep each night. Preventative Care: - Follow-up yearly for your annual exams - For most people, the following are indicated: - reproductive age females vitamin daily - Colonoscopies for colon cancer screening starting at age 45, then every 3-10 years - Mammograms for breast cancer screening every 1-2 years starting at age 40 - Annual flu vaccination - Bone density screening at age 65 - Pneumonia vaccination at age 65 (some people need this before age 65, so ask your doctor!) - Shingles vaccination (shingrix) at age 50 Follow up: 1 year or sooner as needed Return precautions discussed. An After Visit Summary was given to the patient. All questions were answered and patient in agreement with plan. Objective: BP 110/80 Pulse 84 Ht 1.715 m (5' 7.5) Wt 75.2 kg (165 lb 12.8 oz) SpO2 96% BMI 25.58 kg/m Physical Exam Vitals and nursing note reviewed. Constitutional: General: He is not in acute distress. Appearance: Normal appearance. He is not ill-appearing. HENT: Head: Normocephalic and atraumatic. Comments: Poor dentition Right Ear: Tympanic membrane, ear canal and external ear normal. There is no impacted cerumen. Left Ear: Tympanic membrane, ear canal and external ear normal. There is no impacted cerumen. Ears: Comments: Hearing aids in place Nose: Nose normal. No congestion. Mouth/Throat: Mouth: Mucous membranes are moist. Pharynx: No oropharyngeal exudate or posterior oropharyngeal erythema. Eyes: General: No scleral icterus. Right eye: No discharge. Left eye: No discharge. Extraocular Movements: Extraocular movements intact. Conjunctiva/sclera: Conjunctivae normal. Pupils: Pupils are equal, round, and reactive to light. Cardiovascular: Rate and Rhythm: Normal rate and regular rhythm. Pulmonary: Effort: Pulmonary effort is normal. No respiratory distress. Breath sounds: Normal breath sounds. No wheezing. Abdominal: General: Bowel sounds are normal. There is no distension. Palpations: Abdomen is soft. Tenderness: There is no abdominal tenderness. Musculoskeletal: Cervical back: Normal range of motion. No tenderness. Right lower leg: No edema. Left lower leg: No edema. Lymphadenopathy: Cervical: No cervical adenopathy. Skin: General: Skin is warm and dry. Neurological: General: No focal deficit present. Mental Status: He is alert and oriented to person, place, and time. Sensory: No sensory deficit. Motor: No weakness. Deep Tendon Reflexes: Reflexes normal. Psychiatric: Mood and Affect: Mood normal. Behavior: Behavior normal. Thought Content: Thought content normal. Judgment: Judgment normal. LABS: No results found for: CHOL, LDL, HDL, HGBA1C The ASCVD Risk score (Omntez DK, et al., 2019) failed to calculate for the following reasons: Cannot find a previous HDL lab Cannot find a previous total cholesterol lab IMAGES: No new images I spent 23 minutes in total time for this visit including all related clinical activities before, during, and after the visit excluding other billable activities/procedure time. Lori Sheppard MD documented in this encounter [facility] Work Phone: Instructions 11-24-2023 Patient Instructions Note Date & Type Note Facility 11-24-2023 Instructions Lori Sheppard MD - 11/24/2023 8:00 AM EDT I would recommend getting your shingles vaccine at the pharmacy. You get one now and one in 2-6 months. About 30% of people will feel unwell after the shot so I recommend getting it done on a day that you do not have important plans the next day. Routine adult health maintenance It sounds as if things are going well. Keep up the good work! Exercise: - Try for at least 150 minutes of cardiovascular (strenuous) exercise per week. Safety: - Wear your seat belt at all times when in a car and NO TEXTING/CELL PHONES while driving. - Wear a helmet while biking, using a motorcycle, skiing/snow boarding, skate/long boarding, or any activities faster than running. - Avoid smoking. - If you have a gun it needs to be locked up and stored unloaded away from children. Nutrition: - Drink plenty of water each day - No more than 2 alcoholic drinks per day for men. No more than 1 alcoholic drink per day for woman. - Read labels for calories - Use website [employer] for free calorie counting tool when possible. Stress: - Make time for activities that allow you to decrease stress and recognize any red flags of stress for you to know when to activate your stress release mechanisms. Sleep: - Try to get 7-9 hours of sleep each night. Preventative Care: - Follow-up yearly for your annual exams - For most people, the following are indicated: - reproductive age females vitamin daily - Colonoscopies for colon cancer screening starting at age 45, then every 3-10 years - Mammograms for breast cancer screening every 1-2 years starting at age 40 - Annual flu vaccination - Bone density screening at age 65 - Pneumonia vaccination at age 65 (some people need this before age 65, so ask your doctor!) - Shingles vaccination (shingrix) at age 50 documented in this encounter [facility] Work Phone: History of Present illness Narrative 07-26-2023 Lori Sheppard MD - 07/26/2023 8:00 AM EST Note Date & Type Note Facility 07-26-2023 History of Present illness Narrative Subjective: Lauri Du is a 58 y.o. male who presents to clinic today for Establish Care (Ear Fullness, ) Right ear Hearing loss: - sometimes sounds like the wind is blowing in it - hearing is muffled - no pain - going on for a week - loud noises echo - no illness recently - concerned about hearing - no drainage - other ear feels fine Otherwise he is feeling fine but has noticed hearing loss for quite a while that seems to be progressing Review of Systems Assessment/Plan: Lauri Du is a 58 y.o. male with no significant medical history who presents to clinic today to address the following issues: 1. Fluid collection of middle ear Referral to Audiology Referral to ENT CANCELED: Referral to ENT 2. Hearing loss, unspecified hearing loss type, unspecified laterality Referral to Audiology Referral to ENT 3. Need for vaccine for Td (tetanus-diphtheria) Tdap vaccine, age 7 years and older (BOOSTRIX) - Acute problem, unresolved, new to this provider, requires further workup and treatment -Discussed with Lauri that this did not appear to be possible nasal congestion and he could hopefully have improvement with decreasing inflammation but also discussed possibility that this could be more prominent hearing loss versus a mass that I am unable to see that is causing his middle ear effusion. We discussed that this did not appear like acute otitis media that would improve with antibiotics. -Encouraged him to go to audiology for formal hearing testing and to discuss possible hearing aids additionally recommended that if he has not improved in 2 weeks he should see the ENT. Problem List Items Addressed This Visit None Visit Diagnoses Fluid collection of middle ear - Primary Relevant Orders Referral to Audiology Referral to ENT Hearing loss, unspecified hearing loss type, unspecified laterality Relevant Orders Referral to Audiology Referral to ENT Need for vaccine for Td (tetanus-diphtheria) Relevant Orders Tdap vaccine, age 7 years and older (BOOSTRIX) Patient Instructions Try Pseudoephedrine or Zyrtec for a week. Sinuses: Every day twice daily 1) 1-2 puffs of Afrin in each nostril Wait 10-15 minutes 2) 2 puffs Fluticasone in each nostril Drop the Afrin after 3-5 days. After two weeks, reduce that Flonase to 2 puffs once daily Get your shingles vaccine Healthcare maintenance: updated Tdap and discussed shingrix which he will get at pharmacy Follow up: 4 months annual physical examination Return precautions discussed. An After Visit Summary was given to the patient. All questions were answered and patient in agreement with plan. Objective: BP 126/76 Pulse 82 Ht 1.715 m (5' 7.5) Wt 74.1 kg (163 lb 6.4 oz) SpO2 96% BMI 25.21 kg/m Physical Exam Vitals and nursing note reviewed. Constitutional: General: He is not in acute distress. Appearance: Normal appearance. He is not ill-appearing. HENT: Head: Normocephalic and atraumatic. Comments: Poor dentition Right Ear: Ear canal and external ear normal. Decreased hearing noted. A middle ear effusion is present. There is no impacted cerumen. Left Ear: Tympanic membrane, ear canal and external ear normal. There is no impacted cerumen. Nose: Congestion present. Mouth/Throat: Mouth: Mucous membranes are moist. Pharynx: No posterior oropharyngeal erythema. Eyes: General: No scleral icterus. Right eye: No discharge. Left eye: No discharge. Extraocular Movements: Extraocular movements intact. Conjunctiva/sclera: Conjunctivae normal. Cardiovascular: Rate and Rhythm: Normal rate and regular rhythm. Heart sounds: No murmur heard. Pulmonary: Effort: Pulmonary effort is normal. No respiratory distress. Breath sounds: Normal breath sounds. No wheezing. Skin: General: Skin is warm and dry. Neurological: General: No focal deficit present. Mental Status: He is alert and oriented to person, place, and time. Sensory: No sensory deficit. Motor: No weakness. I spent 23 minutes in total time for this visit including all related clinical activities before, during, and after the visit excluding other billable activities/procedure time. Lori Sheppard MD documented in this encounter [facility] Work Phone: Instructions 07-26-2023 Patient Instructions Note Date & Type Note Facility 07-26-2023 Instructions Lori Sheppard MD - 07/26/2023 8:00 AM EST Try Pseudoephedrine or Zyrtec for a week. Sinuses: Every day twice daily 1) 1-2 puffs of Afrin in each nostril Wait 10-15 minutes 2) 2 puffs Fluticasone in each nostril Drop the Afrin after 3-5 days. After two weeks, reduce that Flonase to 2 puffs once daily Get your shingles vaccine documented in this encounter [facility] Work Phone: Evaluation note Note Date & Type Note Facility Evaluation note Diagnosis Fluid collection of middle ear- Primary Hearing loss, unspecified hearing loss type, unspecified laterality Need for vaccine for Td (tetanus-diphtheria) Need for prophylactic vaccination with tetanus-diphtheria (Td) documented in this encounter [facility] Work Phone: Evaluation note Note Date & Type Note Facility Evaluation note Diagnosis Annual physical exam- Primary Routine general medical examination at a health care facility Screening for diabetes mellitus documented in this encounter [facility] Work Phone: Reason for referral (narrative) Consultation (Routine) - Pending Review Note Date & Type Note Facility Reason for referral (narrati ve) Specialty Diagnoses / Procedures Referred By Luther ordoñez Referred To Contact Otolaryngology Diagnoses Fluid collection of middle ear Hearing loss, unspecified hearing loss type, unspecified laterality Lori Sheppard MD [address] [place] [address] Referral ID Status Reason Start Date Expiration Date Visits Requested Visits Authorized [id number] Pending Review Specialty Services Required 3 07/25/2024 1 1 * Consultation (Routine) - Authorized Specialty Diagnoses / Procedures Referred By Contac t Referred To Contact Audiology Diagnoses Fluid collection of middle ear Hearing loss, unspecified hearing loss type, unspecified laterality Lori Sheppard MD [address] [place] [id number] Referral ID Status Reason Start Date Expiration Date Visits Requested Visits Authorized [id number] Authorized Specialty Services Required 3 07/25/2024 1 1 [facility] Work Phone: Summary Purpose Family History No Family History Records FoundNo Family History Records FoundNo Family History Records FoundNo Family History Records Found Advance Directives No Advanced Directives Records FoundNo Advanced Directives Records FoundNo Advanced Directives Records FoundNo Advanced Directives Records Found Additional Source Comments (unrecognized sect ion and content) No Status Records FoundNo Status Records FoundNo Status Records FoundNo Status Records Found INFORMATION SOURCE (unrecogn ized section and content) DATE CREATED AUTHOR 06/10/2019 [facility] DATE CREATED AUTHOR AUTHOR'S ORGANIZ ATION 11/25/2023 [facility] DATE CREATED AUTHOR AUTHOR'S ORGANIZ ATION 11/28/2023 [facility] DATE CREATED AUTHOR AUTHOR'S ORGANIZ ATION 11/27/2024 [facility] Reason for Visit (unrecogniz ed section and content) Reason Comments Establish Care Ear Fullness, Reason Comments Annual Exam Care Teams (unrecognized sec tion and content) Device Repair Technician Relationship Specialty Start Date End Date Lori Sheppard MD [address] [place] [address] PCP - General Family Medicine 07/23/23 Device Repair Technician Relationship Specialty Start Date End Date Lori Sheppard MD [address] [place] [address] PCP - General Family Medicine 07/23/23 FOR RECORDS PERTAINING TO PATIENTS WHO ARE OR HAVE BEEN ENROLLED IN A CHEMICAL DEPENDENCY/SUBSTANCEABUSE PROGRAM, SOME INFORMATION MAY BE OMITTED. This clinical summary was aggregated from multiple sources. Caution should be exercised in using it in the provision of clinical care. This summary normalizes information from multiple sources, and as a consequence, information in this document may materially change the coding, format and clinical context of patient data. In addition, data may be omitted in some cases. CLINICAL DECISIONS SHOULD BE BASED ON THE PRIMARY CLINICAL RECORDS. [email or web address] provides no warranty or guarantee of the accuracy or completeness of information in this document.
[2025-08-25] MEDS: Lidocaine 2% /Epi 1:100 (20ml) 20 ML VIAL 10 ML INFILT (13:34)
[2025-08-25 13:35] VITALS: BP 132/82; PULSE 73; RESP 18; TEMP 36.7; O2SAT 98
== END 2025-08-25 13:47 | disposition home or self-care (01) ==
LOC: ED 12:52
PROVIDERS: Emergency Provider Student in an Organized Health Care Education/Training Program; PCP Family Medicine; Visit Provider Student in an Organized Health Care Education/Training Program
DX: S61.412A Laceration without foreign body of left hand, initial encounter (principal); W26.8XXA Contact with other sharp object(s), not elsewhere classified, initial encounter; Y93.89 Activity, other specified; Z23 Encounter for immunization
CPT/HCPCS: 12002; 73130; 90471; 90715; 99283